=== PATIENT | male | born 1985 | race Caucasian/White ===

== ENCOUNTER 2019-09-17 20:35 | Emergency (ER) | payer OTHER ==
[~2019-09-17] VITALS: Ht 188 cm; Wt 81.7 kg
[2019-09-17 21:35] LABS: ABSOLUTE BASOPHILS 0.1 thou/uL (0.0-0.2); ABSOLUTE EOSINOPHILS 0.5 thou/uL (0.0-0.7); ABSOLUTE LYMPHOCYTES 1.9 thou/uL (0.8-5.3); ABSOLUTE MONOCYTES 0.7 thou/uL (0.0-1.2); BASOPHILS 0.9 %; EOSINOPHILS 5.2 %; HEMATOCRIT 40.1 % (42.0-52.0); HEMOGLOBIN 13.7 gm/dL (14.0-18.0); LYMPHOCYTES 21.1 %; MCH 29.9 pg (26.0-34.0); MCV 87.9 fL (80.0-100.0); MONOCYTES 7.4 %; MPV 9.8 fl. (7.2-11.1); NUCLEATED RBCS 0 /100WBC; PLATELET COUNT* 222 thou/uL (150-400); POLYS 65.4 %; RBC 4.57 mil/uL (4.50-6.00); RDW-CV 13.5 % (10.5-14.5); WBC 9.1 thou/uL (4.0-11.0)
[2019-09-17 21:41] LABS: CALCIUM 8.6 mg/dL (8.5-10.1); CREATININE 1.2 mg/dL (0.6-1.3); POTASSIUM 3.6 mmol/L (3.5-5.1)
[2019-09-17 21:46] LABS: ALBUMIN 4.5 g/dL (3.4-5.0); MAGNESIUM 2.1 mg/dL (1.8-2.4); TOTAL BILIRUBIN 0.8 mg/dL (<0.1-1.0); TOTAL PROTEIN 7.5 g/dL (6.4-8.2)
[2019-09-17 22:39] VITALS: BP 118/68
== END 2019-09-17 22:39 | disposition home or self-care (01) ==
LOC: M.ERS 20:35
PROVIDERS: Emergency Medicine
DX: R20.2 Paresthesia of skin (principal); Z90.49 Acquired absence of other specified parts of digestive tract